=== PATIENT | female | born 1965 | race African-American/Black ===

== ENCOUNTER 2017-11-25 14:51 | Emergency (ER) | payer OTHER ==
[~2017-11-25] VITALS: Ht 160 cm; Wt 108.9 kg
[2017-11-25] MEDS ORDERED: Ketorolac 30mg Inj IM ONE (15:15)
[2017-11-25] MEDS ORDERED: Methocarbamol 500mg tab ORAL ONE (15:15)
--- NOTE | 2017-11-25 15:16 | Emergency Room Report ---
History of Present Illness General Chief Complaint: Back Pain-No Injury Source: Patient Present Illness HPI 52-year-old female patient presents to ER brought in by ambulance complaining of low back pain. Patient reports no injury. Patient reports history of low back pain worsened today. Reports that she was walking to her doctor's appointment and suddenly the pain became too intense, doctor's appointment was across the street from [facility]. Reports had to call ambulance to bring her in. denies radiation of pain down the legs.denies dysuria, bowel or bladder incontinence. reports feels like pain may be moving to hips. Reports does not feel like UTI. Denies history of drug use or cancer. Denies fever, chest pain, shortness breath, abdominal pain. Denies history of kidney stones. denies , reports last menstrual period "a while ago". Allergies: Uncoded Allergies: FASTIN (Allergy, Unknown, 11/25/17) Patient History Past Medical History: see triage record Reviewed Nursing Documentation: PMH: Agreed; PSxH: Agreed Nursing Documentation-PMH Past Medical History: No History, Except For Review of Systems All Other Systems: negative except mentioned in HPI Physical Exam Vital Signs Date Time Temp Pulse Resp B/P (MAP) Pulse Ox O2 Delivery O2 Flow Rate FiO2 11/25/17 14:49 97.9 92 16 127/97 95 Room Air 97.9 Sp02 EP Interpretation: reviewed, normal General Appearance: well appearing, no apparent distress, alert, GCS 15, non- toxic Head: normocephalic ENT: hearing grossly normal, normal pharynx, no angioedema, normal voice, uvula midline, moist mucus membranes Neck: full range of motion Respiratory: lungs clear, normal breath sounds, no rhonchi, no respiratory distress, no accessory muscle use, no wheezing, speaking full sentences Cardiovascular #1: regular rate, rhythm, no edema Musculoskeletal: back normal, digits/nails normal, gait/station normal, normal range of motion, other - no bony step-off, tender - lumbar spine Neurologic: alert, oriented x3, responsive, motor strength/tone normal, sensory intact, other - SLR positive bilatearlly Psychiatric: mood/affect normal Skin: no rash Medical Decision Making PA Attestation Dr. Marie is my supervising Physician whom patient management has been discussed with. Diagnostic Impression: Primary Impression: Back pain Additional Impression: Urinary tract infection ER Course Pt presents to ED c/o back pain. DDX considered but are not limited to sprain, strain, cauda equina, stenosis, herniation, epidural abscess, AAA, UTI. Low suspicion for cauda equina, no bowel or bladder incontinence or retention. No fever, nontoxic appearing, no radiation of pain, low suspicion for epidural mass. No abdominal pain, no blood pressure elevation, nontoxic appearing, low suspicion for AAA. VITAL SIGNS are WNL, patient is afebrile Ordered pain medication, imaging, labs. ER COURSE: Pain medication provided. Patient reports she does not want opioid pain medication. Imaging ordered. CT lumbar spine shows no acute fracture, degenerative changes. Provided patient with copy of radiology report. Patient advised on weight loss. Patient reports son will arrive to ER to pick her up. Patient reports she believes she can drive home. UA positive for leukocyte esterase, WBCs, bacteria, cloudy appearance, will provide patient with abx for treatment of UTI. Followup with PCP, discuss treatment for possible sciatica. Followup with pain management and/or PT. Request referral from PCP. Followup with PCP for further MRI and/or CT imaging as needed. DISCHARGE: -Rx provided for Keflex -Rx provided for Tylenol -Rx provided for Lidocaine patch -Rx provided for Robaxin. SE may cause drowsiness, do not take prior to drinking , driving, or operating [employer] machinery. At this time pt. is stable for d/c to home. At this time patient is resting comfortably, in no acute distress, nontoxic appearing, smiling and talking without difficulty. Will provide printed patient care instructions, and any necessary prescriptions. Patient instructed to follow with primary care provider for further treatment and referral as needed. Care plan and follow up instructions have been discussed with the patient prior to discharge. Patient reports understanding and agreement to treatment plan. Patient questions asked and answered. ER precautions given, patient instructed to return to ER immediately for any new or worsening of symptoms. - Please note that this Emergency Department Report was dictated using [employer] technology software, occasionally this can lead to erroneous entry secondary to interpretation by the dictation equipment. Labs Test 11/25/17 16:45 Urine Color Yellow Urine Appearance Slightly cloudy Urine pH 6 (4.5-8.0) Urine Specific [place] 1.020 (1.005-1.035) Urine Protein 1+ (NEGATIVE) Urine Glucose (UA) Negative (NEGATIVE) Urine Ketones 1+ (NEGATIVE) Urine Occult Blood 1+ (NEGATIVE) Urine Nitrite Negative (NEGATIVE) Urine Bilirubin Negative (NEGATIVE) Urine Urobilinogen 4 MG/DL (0.0-1.0) Urine Leukocyte Esterase 1+ (NEGATIVE) Urine RBC 2-4 /HPF (0 - 2) Urine WBC 5-10 /HPF (0 - 2) Urine Squamous Epithelial Cells Moderate /LPF (NONE/OCC) Urine Bacteria Many /HPF (NONE) CT/MRI/US Diagnostic Results CT/MRI/US Diagnostic Results : Imaging Test Ordered: CT lumbar spine Last Vital Signs Date Time Temp Pulse Resp B/P (MAP) Pulse Ox O2 Delivery O2 Flow Rate FiO2 11/25/17 14:49 97.9 92 16 127/97 95 Room Air 97.9 Disposition: HOME, SELF-CARE Condition: Stable Scripts Methocarbamol* (ROBAXIN*) 500 Mg Tablet 500 MG PO TID, #21 TAB 0 Refills Prov: Kenyon Steinberg 11/25/17 Lidocaine (Lidocaine) 1 Each Adh..patch 700 MG TP DAILY for 7 Days, #7 PATCH Prov: Kenyon Steinberg 11/25/17 Cephalexin* (KEFLEX*) 500 Mg Capsule 500 MG ORAL EVERY 12 HOURS, #14 CAP 0 Refills Prov: Kenyon Steinberg 11/25/17 Acetaminophen* (TYLENOL EXTRA STRENGTH*) 500 Mg Tablet 500 MG ORAL Q8H PRN for Prn Headache/Temp > 101, #30 TAB 0 Refills Prov: Kenyon Steinberg 11/25/17 Patient Instructions: Back Exercises, [id number], Back Pain, Adult, Degenerative Disk Disease, Sciatica, [id number], Urinary Tract Infection, Easy -to-Read Additional Instructions: Patient instructed to follow up with primary care provider 3-5 and discuss further referral and imaging at that time. Discuss referral to PT. Patient instructed on rest, ice and heat. Do not take muscle relaxant prior to drinking, driving, or operating heavy machinery. Take medications as directed. Patient questions asked and answered. ER precautions given, patient instructed to return to ER immediately for any new or worsening of symptoms. Kenyon Steinberg November 25, 2017 15:16
[2017-11-25 15:43] VITALS: BP 127/97
[2017-11-25 17:04] LABS: APPEARANCE,URINE SLIGHTLY CLOUDY; BILIRUBIN, URINE NEGATIVE (NEGATIVE); GLUCOSE, URINE (UA) NEGATIVE (NEGATIVE); KETONES,URINE 1+ (NEGATIVE); LEUKOCYTE ESTERASE ,URINE 1+ (NEGATIVE); NITRITE,URINE NEGATIVE (NEGATIVE); PH,URINE 6 (4.5-8.0); PROTEIN,URINE 1+ (NEGATIVE); UROBILINOGEN,URINE 4 MG/DL (0.0-1.0)
--- NOTE | 2017-11-25 17:04 | Diagnostic Imaging Report ---
Indications: Severe low back pain times one Technique: Spiral acquisitions obtained through the lumbar spine. Multiplanar reconstructions were generated. No IV contrast utilized. Total dose length product 1316 mGycm. CTDIvol(s) 48 mGy. Dose reduction achieved using automated exposure control Comparison: none Findings: Bony alignment is normal. Vertebral body heights are preserved. No acute fractures. No dislocations. There is mild sacroiliac degenerative change. The disc spaces are preserved. There is facet arthrosis at L4-5 on the right and L5-S1 bilaterally. No significant disc bulge or protrusion, spinal stenosis, or neural foraminal stenosis. Incidental note is made of cholecystectomy clips. Impression: No acute bony trauma Mild degenerative changes, as described Incidental finding of prior cholecystectomy The CT scanner at [facility] is accredited by the [employer] and the scans are performed using protocols designed to limit radiation exposure to as low as reasonably achievable to attain images of sufficient resolution adequate for diagnostic evaluation.
[2017-11-25 17:05] LABS: COLOR,URINE YELLOW
[2017-11-25] MEDS ORDERED: CEPHALEXIN500 MG ORAL (17:59)
[2017-11-25] MEDS ORDERED: ROBAXIN500 MG PO (17:59)
[2017-11-25] MEDS ORDERED: LIDOCAINE700 M1 TP (17:59)
[2017-11-25] MEDS ORDERED: TYLENOL EXTRA500 MG ORAL (17:59)
[2017-11-25 18:41] VITALS: BP 127/97
== END 2017-11-25 18:30 | disposition home or self-care (01) ==
LOC: EDBD 14:51 → EMR 16:14
DX: M54.5 Low back pain (principal); N39.0 Urinary tract infection, site not specified; Z90.49 Acquired absence of other specified parts of digestive tract
CPT/HCPCS: 72131; 81003; 87086; 96372; 99284; J1885